=== PATIENT | female | born 2000 | race African-American/Black ===

== ENCOUNTER 2020-10-10 10:24 | Outpatient (CLI) | payer OTHER | END 2020-10-10 10:25 | disposition home or self-care (01) | LOC: CSHULT 10:24 | PROVIDERS: ATTEND Family Medicine | DX: Z34.82 Encounter for supervision of other normal pregnancy, second trimester (principal) | CPT/HCPCS: 76805 ==

== ENCOUNTER 2021-02-21 09:52 | Outpatient (CLI) | payer OTHER ==
[2021-02-21 23:40] LABS: SARS-CoV-2 PCR by NAA Not Detected (NotDetected)
== END 2021-02-21 09:53 | disposition home or self-care (01) ==
LOC: CSHLAB 09:52
PROVIDERS: ATTEND Family Medicine
DX: Z20.822 Contact with and (suspected) exposure to COVID-19 (principal)
CPT/HCPCS: U0003; U0005

== ENCOUNTER 2021-12-13 11:13 | Day surgery (SDC) | payer OTHER ==
[2021-12-13] MEDS ORDERED: hydrALAZINE 20 MG/ML VIAL SLOW IVP PRN (13:03)
[2021-12-13 13:32] VITALS: BMI 21.4
[2021-12-13 15:00] LABS: Bilirubin Neg (Negative); Blood, Urine 10 (Negative); Clarity Clear (Clear); Glucose, Urine (Dipstick) Normal (Negative); Ketone, Urine Negative (Negative); Leukocyte 25 (Negative); Nitrite Negative (Negative); Protein, Urine (Dipstick) Negative (Neg-Trace); Specific Gravity, Urine 1.015 (1.002-1.036); Urobilinogen Normal mg/dL (Less than 2)
[2021-12-13 15:06] LABS: Urine Culture Reflex No No
[2021-12-13 15:26] LABS: Bacteria/HPF 1+ HPF (None Seen); RBC/HPF 0-3 HPF (0-3); Squamous Epithelial 0-3 HPF (0-3); WBC/HPF 0-3 HPF (0-3)
== END 2021-12-13 14:30 | disposition home or self-care (01) ==
LOC: CSHLD/OP 11:13
PROVIDERS: ATTEND Obstetrics & Gynecology
DX: O23.592 Infection of other part of genital tract in pregnancy, second trimester (principal); O26.852 Spotting complicating pregnancy, second trimester; Z3A.24 24 weeks gestation of pregnancy; Z88.5 Allergy status to narcotic agent
CPT/HCPCS: 76815; 81001; 87086

== ENCOUNTER 2022-01-07 15:09 | Emergency (ER) | payer OTHER ==
[2022-01-07] MEDS ORDERED: Ondansetron PF 4 MG/2 ML Vial ONE (15:57)
[2022-01-07 16:05] LABS: ALT (SGPT) 15 U/L (8-55); AST (SGOT) 19 U/L (5-34); Albumin 3.3 g/dL (3.5-5.0); Alkaline Phosphatase 76 U/L (40-110); Anion Gap 14 mmol/L (10-20); BUN (Urea Nitrogen) 5 mg/dL (7.0-18.7); Bilirubin, Total 0.6 mg/dL (0.2-1.2); Calc. Creatinine Clearance 0 mL/min (70-130); Calcium 9.3 mg/dL (7.8-10.44); Carbon Dioxide 24 mmol/L (22-29); Chloride 103 mmol/L (98-107); Estimated GFR 125; Globulin 3.2 g/dL (2.4-3.5); Glucose 78 mg/dL (70-105); Lipase 30 U/L (8-78); Potassium 3.8 mmol/L (3.5-5.1); Protein, Total 6.5 g/dL (6.0-8.3); Sodium 137 mmol/L (136-145)
[2022-01-07 16:07] LABS: #Monocytes 0.4 10x3/uL (0.0-1.1); #Neutrophils 4.1 10x3/uL (1.5-8.4); %Basophils 0.2 % (0.0-2.0); %Lymphocytes 19.6 % (18.0-47.0); %Monocytes 6.5 % (0.0-10.0); Hemoglobin 8.9 g/dL (12.0-15.5); Mean Corpuscular Hemoglobin 26.9 pg (27.0-33.0); Mean Corpuscular Volume 81.6 fl (81.6-98.3); Mean Platelet Volume 11.1 fl (7.4-10.4); Platelet Count 199 10x3/uL (150-450); RBC Distribution Width 14.8 % (11.5-14.5); Red Blood Cell (RBC) Count 3.31 10x6/uL (3.90-5.03); White Blood Cell (WBC) Count 5.7 10x3/uL (3.5-10.5)
[2022-01-07 16:57] LABS: Bilirubin Neg (Negative); Blood, Urine Negative (Negative); Glucose, Urine (Dipstick) Normal (Negative); Ketone, Urine Negative (Negative); Leukocyte 100 (Negative); Nitrite Negative (Negative); Protein, Urine (Dipstick) 15 mg/dl (Neg-Trace); Specific Gravity, Urine 1.015 (1.002-1.036); Urobilinogen Normal mg/dL (Less than 2)
[2022-01-07 17:40] LABS: Clarity Clear (Clear)
[2022-01-07 17:41] LABS: Bacteria/HPF 2+ HPF (None Seen); Mucous/LPF 2+ LPF (<2+); RBC/HPF 0-3 HPF (0-3)
== END 2022-01-07 18:03 | disposition home or self-care (01) ==
LOC: CSHERS 15:09
DX: O99.013 Anemia complicating pregnancy, third trimester (principal); O21.9 Vomiting of pregnancy, unspecified; R19.7 Diarrhea, unspecified; R51.9 Headache, unspecified; Z20.822 Contact with and (suspected) exposure to COVID-19; Z3A.28 28 weeks gestation of pregnancy
CPT/HCPCS: 80053; 81003; 81015; 83690; 85025; 87804; 96361; 96374; J2405; U0003; U0005

== ENCOUNTER 2022-01-19 23:02 | Emergency (ER) | payer OTHER ==
[2022-01-20] MEDS ORDERED: Meclizine HCl 25 MG TAB ONE (00:23)
[2022-01-20 00:32] LABS: Hemoglobin 9.1 g/dL (12.0-15.5); Mean Corpuscular HGB CONC 31.7 g/dL (32.0-36.0); Mean Corpuscular Hemoglobin 25.6 pg (27.0-33.0); Mean Corpuscular Volume 80.6 fl (81.6-98.3); Mean Platelet Volume 11.8 fl (7.4-10.4); Platelet Count 218 10x3/uL (150-450); RBC Distribution Width 14.9 % (11.5-14.5); Red Blood Cell (RBC) Count 3.56 10x6/uL (3.90-5.03); White Blood Cell (WBC) Count 7.7 10x3/uL (3.5-10.5)
[2022-01-20 00:51] LABS: ALT (SGPT) 9 U/L (8-55); AST (SGOT) 18 U/L (5-34); Albumin 3.2 g/dL (3.5-5.0); Alkaline Phosphatase 78 U/L (40-110); Anion Gap 14 mmol/L (10-20); BUN (Urea Nitrogen) 4 mg/dL (7.0-18.7); Bilirubin, Total 0.8 mg/dL (0.2-1.2); Calc. Creatinine Clearance 0 mL/min (70-130); Calcium 8.4 mg/dL (7.8-10.44); Carbon Dioxide 22 mmol/L (22-29); Chloride 105 mmol/L (98-107); Estimated GFR 126; Globulin 2.8 g/dL (2.4-3.5); Glucose 84 mg/dL (70-105); Potassium 3.6 mmol/L (3.5-5.1); Sodium 137 mmol/L (136-145)
[2022-01-20 01:02] LABS: MDiff Complete? YES
[2022-01-20 01:48] LABS: Diff Comment (RBC Morph SCRN) NORMAL; Eosinophils 1 % (0-10); Lymphocytes 11 % (21-51); Monocytes 9 % (0-10); Neutrophil 79 % (42-75); Platelet Morphology Comment Appears Adequate
[2022-01-20] MEDS ORDERED: Acetaminophen 500 MG TAB ONE (01:58)
== END 2022-01-20 00:20 | disposition home or self-care (01) ==
LOC: CSHERS 23:02
DX: O21.0 Mild hyperemesis gravidarum (principal); O99.891 Other specified diseases and conditions complicating pregnancy; R42 Dizziness and giddiness; R51.9 Headache, unspecified; Z3A.30 30 weeks gestation of pregnancy
CPT/HCPCS: 80053; 85025; 96360

== ENCOUNTER 2022-03-09 11:02 | Emergency (ER) | payer OTHER | END 2022-03-09 11:50 | disposition home or self-care (01) | LOC: CSHERS 11:02 | DX: K08.89 Other specified disorders of teeth and supporting structures (principal) | CPT/HCPCS: 99283 ==

== ENCOUNTER 2022-03-17 12:20 | Inpatient (IN) | payer OTHER ==
[2022-03-17] MEDS ORDERED: Misoprostol 200 MCG TAB PR PRN (12:31)
[2022-03-17] MEDS ORDERED: Methylergonovine 0.2 MG/ML VIAL IM PRN (12:31)
[2022-03-17] MEDS ORDERED: Diphenoxylate HCl/Atropine Tablet PO PRN (12:31)
[2022-03-17] MEDS ORDERED: Carboprost 250 MCG/ML AMP IM PRN (12:31)
[2022-03-17] MEDS ORDERED: Ibuprofen 800 MG TAB PO PRN (12:31)
[2022-03-17] MEDS ORDERED: hydrALAZINE 20 MG/ML VIAL SLOW IVP PRN ×2 (12:31→22:30)
[2022-03-17] MEDS ORDERED: Butorphanol Tartrate 1 MG/ML VIAL SLOW IVP PRN (12:31)
[2022-03-17] MEDS ORDERED: Promethazine HCl 25 MG/ML VIAL IM PRN ×2 (12:31→22:30)
[2022-03-17] MEDS ORDERED: Lidocaine 1% (PF) 30 ML VIAL SC PRN (12:31)
[2022-03-17] MEDS ORDERED: Acetaminophen 500 MG TAB PO PRN (12:31)
[2022-03-17] MEDS ORDERED: Ondansetron PF 4 MG/2 ML Vial IVP PRN ×2 (12:31→22:30)
[2022-03-17] MEDS ORDERED: HYDROcodone/Acetaminophen 5/325 mg Tablet PO PRN ×2 (12:31→22:30)
[2022-03-17] MEDS ORDERED: Lactated Ringer's 1,000 ML IV SCH (12:45)
[2022-03-17] MEDS ORDERED: NS w/ Oxytocin 30 units 500 ML IV SCH ×2 (12:45→22:30)
[2022-03-17] MEDS ORDERED: Penicillin G Potassium 5 MILL.UNITS in Sodium Chloride 0.9% 100 ML IVPB SCH (12:45)
[2022-03-17 13:18] VITALS: BMI 25.3
[2022-03-17 13:41] LABS: Hemoglobin 10.6 g/dL (12.0-15.5); Mean Corpuscular HGB CONC 31.2 g/dL (32.0-36.0); Mean Corpuscular Volume 77.1 fl (81.6-98.3); Mean Platelet Volume 11.5 fl (7.4-10.4); Platelet Count 296 10x3/uL (150-450); Red Blood Cell (RBC) Count 4.41 10x6/uL (3.90-5.03); White Blood Cell (WBC) Count 7.9 10x3/uL (3.5-10.5)
[2022-03-17 13:58] LABS: HBSAg Index 0.22 S/CO (0-0.99); Hep B Surf Ag Non-Reactive S/CO (NonReactive)
[2022-03-17 13:59] LABS: Syphilis Antibody Nonreactive (Nonreactive); Syphilis Antibody Index 0.06 S/CO (<1.00 Non-Reactive)
[2022-03-17 15:14] LABS: SARS-CoV-2 NAA Rapid Test Not Detected (NotDetected)
[2022-03-17] MEDS: Penicillin G 2.5 MILL.units 2.5 MILL.UNITS in Premix Bag 1 BAG IVPB SCH (16:48)
[2022-03-17] MEDS ORDERED: Milk Of Magnesia 30 ML UDCUP PO PRN (22:30)
[2022-03-17] MEDS ORDERED: Lanolin Ointment 7 GM TUBE TOP PRN (22:30)
[2022-03-17] MEDS ORDERED: Benzocaine-Menthol 82.5 ML CAN TOP PRN (22:30)
[2022-03-17] MEDS ORDERED: diphenhydrAMINE 25 MG CAP PO PRN (22:30)
[2022-03-17] MEDS ORDERED: Boostrix 0.5 ML (Tdap) VIAL (>/=7 yrs of age) IM ONE (22:30)
[2022-03-17] MEDS ORDERED: Bisacodyl 10 MG SUPP PR PRN (22:30)
[2022-03-17] MEDS ORDERED: Ibuprofen 800 MG TAB PO SCH (22:45)
[2022-03-17] MEDS ORDERED: Docusate 100 MG CAP PO SCH (22:45)
[2022-03-18] MEDS: Ibuprofen 800 MG TAB PO SCH ×5 (01:17→22:09)
[2022-03-18] MEDS: Penicillin G 2.5 MILL.units 2.5 MILL.UNITS in Premix Bag 1 BAG IVPB SCH (01:20)
[2022-03-18] MEDS: HYDROcodone/Acetaminophen 5/325 mg Tablet PO PRN ×2 (01:30→11:22)
[2022-03-18] MEDS: Ferrous Sulfate 325 MG TAB PO SCH ×2 (07:29→17:20)
[2022-03-18] MEDS: Prenatal Vitamin 1 TAB PO SCH (08:49)
[2022-03-18] MEDS: Docusate 100 MG CAP PO SCH ×2 (08:50→22:09)
[2022-03-19] MEDS: Ibuprofen 800 MG TAB PO SCH ×2 (05:51→14:08)
[2022-03-19 08:09] VITALS: BP 108/67; TEMP 98
[2022-03-19] MEDS: Ferrous Sulfate 325 MG TAB PO SCH (08:17)
[2022-03-19] MEDS: Prenatal Vitamin 1 TAB PO SCH (09:04)
[2022-03-19] MEDS: Docusate 100 MG CAP PO SCH (09:04)
== END 2022-03-19 15:00 | disposition home or self-care (01) | DRG 807 ==
LOC: CSHLD 12:20 → CSHPP 22:53
PROVIDERS: ADMIT Family Medicine; ATTEND Family Medicine
PROC: 10E0XZZ Delivery of Products of Conception, External Approach (ICD-10-PCS; principal; 2022-03-17)
PROC: 10907ZC Drainage of Amniotic Fluid, Therapeutic from Products of Conception, Via Natural or Artificial Opening (ICD-10-PCS; 2022-03-17)
PROC: 10E0XZZ Delivery of Products of Conception, External Approach (ICD-10-PCS; 2022-03-17)
DX: O99.824 Streptococcus B carrier state complicating childbirth (principal); Z37.0 Single live birth; Z20.822 Contact with and (suspected) exposure to COVID-19; Z3A.38 38 weeks gestation of pregnancy; O70.0 First degree perineal laceration during delivery
CPT/HCPCS: 36415; 85027; 86780; 86850; 86900; 86901; 87340; J0595; J2540; J2590; J3490; U0002

== ENCOUNTER 2022-08-23 08:48 | Emergency (ER) | payer OTHER | END 2022-08-23 09:22 | disposition home or self-care (01) | LOC: CSHERS 08:48 | DX: S29.011A Strain of muscle and tendon of front wall of thorax, initial encounter (principal); M94.0 Chondrocostal junction syndrome [Tietze]; X58.XXXA Exposure to other specified factors, initial encounter | CPT/HCPCS: 71046 ==

== ENCOUNTER 2024-05-03 10:46 | Outpatient (CLI) | payer OTHER | END 2024-05-03 10:47 | disposition home or self-care (01) | LOC: CSHULT 10:46 | DX: Z34.80 Encounter for supervision of other normal pregnancy, unspecified trimester (principal); Z3A.20 20 weeks gestation of pregnancy | CPT/HCPCS: 76805 ==